=== PATIENT | male | born 1975 | race American Indian/Alaskan Native ===

== ENCOUNTER 2018-04-24 15:21 | Emergency (ER) | payer MEDICARE ==
[2018-04-24 15:49] VITALS: BMI 26.9
[2018-04-24] MEDS ORDERED: Amoxicillin-Clav 875-125 mg Tab PO STA (17:34)
[2018-04-24] MEDS ORDERED: Amoxicillin-Clav 875-125 mg Tab PO ONE (17:43)
--- NOTE | 2018-04-24 17:50 | C.PDOC ---
History Of Present Illness 43 year old male presents to the ED c/o 3 day history of fever associated with coughing, body aches. Patient reports he has been taking OTC medication but symptoms worsen. Patient denies rash, vomit, diarrhea, weakness, numbness, recent travel, sick contacts. Time Seen by Provider: 04/24/18 15:56 Chief Complaint (Nursing): Flu-like Symptoms History Per: Patient History/Exam Limitations: no limitations Onset/Duration Of Symptoms: Days Current Symptoms Are (Timing): Still Present Location Of Pain: Diffuse Myalgias Associated Symptoms: Fever, Cough, Myalgias Ear Symptoms: Bilateral: None Recent travel outside of the [place]: No Additional History Per: Patient Past Medical History Reviewed: Historical Data, Nursing Documentation, Vital Signs Vital Signs: Last Vital Signs Temp 99 F 04/24/18 18:01 Pulse 96 H 04/24/18 18:01 Resp 16 04/24/18 18:01 BP 143/87 04/24/18 18:01 Pulse Ox 98 04/24/18 20:35 - Medical History PMH: HTN Surgical History: No Surg Hx Family History: States: Unknown Family Hx - Social History Hx Alcohol Use: Yes Hx Substance Use: No - Immunization History Hx Tetanus Toxoid Vaccination: No Hx Influenza Vaccination: No Hx Pneumococcal Vaccination: No Review Of Systems Constitutional: Positive for: Malaise. Negative for: Fever, Chills Cardiovascular: Negative for: Chest Pain, Palpitations Respiratory: Positive for: Cough. Negative for: Shortness of Breath Gastrointestinal: Negative for: Nausea, Vomiting, Abdominal Pain Skin: Negative for: Rash Neurological: Negative for: Weakness, Numbness Physical Exam - Physical Exam Appears: Non-toxic, No Acute Distress Skin: Normal Color, Warm, Dry Head: Atraumatic, Normacephalic Eye(s): bilateral: Normal Inspection Ear(s): Bilateral: Normal Nose: No Discharge Oral Mucosa: Moist Throat: Normal, No Erythema, No Exudate Neck: Normal ROM, Supple Chest: Symmetrical Cardiovascular: Rhythm Regular Respiratory: No Rales, Rhonchi (right sided), No Wheezing Gastrointestinal/Abdominal: Soft, No Tenderness, No Guarding, No Rebound Extremity: Normal ROM, No Tenderness, No Swelling Neurological/Psych: Oriented x3, Normal Speech Gait: Steady ED Course And Treatment O2 Sat by Pulse Oximetry: 98 (ON RA) Pulse Ox Interpretation: Normal - Other Rad CXR X-Ray: Read By Radiologist Interpretation: HISTORY: cough, fever. COMPARISON: None available. TECHNIQUE : Chest PA and lateral. FINDINGS: LUNGS: Medial right lower lobe atelectasis / pneumonia. Please note that chest x-ray has limited sensitivity for the detection of pulmonary masses. PLEURA: No significant pleural effusion identified. No definite pneumothorax . CARDIOVASCULAR: Heart size appears within normal limits. OSSEOUS STRUCTURES: Degenerative changes. VISUALIZED UPPER ABDOMEN: Unremarkable. OTHER FINDINGS: None. IMPRESSION: Medial right lower lobe atelectasis/ pneumonia. Medical Decision Making Medical Decision Making: Plan: * CXR * Augmentin 1 tab PO * Tylenol 975 mg PO * Zithromax 500 mg PO On re-exam, the patient is resting comfortably. Lungs are CTA, heart is RRR, abdomen is soft, non-tender and tolerating PO well. FOllow up with the medical doctor within 1-2 days. Return if worsened. Disposition Counseled Patient/Family Regarding: Smoking Cessation (for 5 minutes) - Disposition [facility] Disposition: HOME/ ROUTINE Disposition Time: 17:48 Condition: STABLE Additional Instructions: Follow up with the medical doctor/clinic within 1-2 days, Return if worsened, Prescriptions: Amoxicillin/Clavulanate [Augmentin 875 MG-125 MG] 1 tab PO BID #14 tab Azithromycin [Zithromax] 250 mg PO DAILY #4 tab predniSONE [Prednisone] 20 mg PO BID #10 tab Promethazine/Codeine [Phenergan/Codeine Oral Syrup] 5 ml PO Q8 PRN #50 ml PRN Reason: Cough Instructions: Pneumonia, Adult (DC) Forms: [employer] (Turkish), Work Excuse - Clinical Impression Clinical Impression: Pneumonia - PA / P[employer] / Resident Statement MD/DO has reviewed & agrees with the documentation as recorded. - Scribe Statement The provider has reviewed the documentation as recorded by the Scribgavin Long All medical record entries made by the Scribe were at my direction and personally dictated by me. I have reviewed the chart and agree that the record accurately reflects my personal performance of the history, physical exam, medical decision making, and the department course for this patient. I have also personally directed, reviewed, and agree with the discharge instructions and disposition.
[2018-04-24 18:01] VITALS: BP 143/87; PULSE 96; RESP 16; TEMP 99
--- NOTE | 2018-04-24 18:28 | RAD ---
HISTORY: cough, fever COMPARISON: None available. TECHNIQUE: Chest PA and lateral FINDINGS: LUNGS: Medial right lower lobe atelectasis/ pneumonia. Please note that chest x-ray has limited sensitivity for the detection of pulmonary masses. PLEURA: No significant pleural effusion identified. No definite pneumothorax . CARDIOVASCULAR: Heart size appears within normal limits. OSSEOUS STRUCTURES: Degenerative changes. VISUALIZED UPPER ABDOMEN: Unremarkable. OTHER FINDINGS: None. IMPRESSION: Medial right lower lobe atelectasis/ pneumonia.
[2018-04-24 20:32] VITALS: O2SAT 98
== END 2018-04-24 18:01 | disposition home or self-care (01) ==
LOC: C.ER 15:21
DX: J18.9 Pneumonia, unspecified organism (principal)